=== PATIENT | male | born 1995 ===

== ENCOUNTER 2018-01-06 17:36 | Emergency (ER) | payer BC ==
--- NOTE | 2018-01-06 18:34 | RAD ---
LEFT THUMB THREE VIEWS: 01/06/18 HISTORY: Left thumb injury. FINDINGS: Joint spaces are preserved. No acute fracture, dislocation, or radiopaque foreign bodies. IMPRESSION: No acute osseous abnormalities are demonstrated. POS: [facility]
[2018-01-06] MEDS ORDERED: HYDROcodone/Acetaminophen 10/325 mg Tablet ONE (18:56)
[2018-01-06] MEDS ORDERED: Adacel (T-DAP) 0.5 ML VIAL ONE ×2 (18:57→19:10)
== END 2018-01-06 19:26 | disposition home or self-care (01) ==
LOC: ERS 17:36
DX: S60.012A Contusion of left thumb without damage to nail, initial encounter (principal); Z23 Encounter for immunization; W20.8XXA Other cause of strike by thrown, projected or falling object, initial encounter
CPT/HCPCS: 90471; 90715